=== PATIENT | male | born 1995 | race Caucasian/White ===

== ENCOUNTER 2020-06-22 22:32 | Emergency (ER) | payer SELFPAY ==
--- NOTE | 2020-06-22 22:56 | ER Document Report ---
ED Medical Screen (RME) - General Stated Complaint: CYST TAILBONE Time Seen by Provider: 06/22/20 22:55 Notes: Presents complaining of cyst of the sacral area for the past 2 to 3 weeks. Patient denies any fever. Patient denies any history of diabetes. Patient with a history of bipolar disorder and depression. I have greeted and performed a rapid initial assessment of this patient. A comprehensive ED assessment and evaluation of the patient, analysis of test re sults and completion of the medical decision making process will be conducted by additional ED providers. Physical Exam - Vital signs Vitals: Temp Pulse Resp BP Pulse Ox 98.1 F 100 20 117/77 97 06/22/20 22:42 06/22/20 22:42 06/22/20 22:42 06/22/20 22:42 06/22/20 22:42 - Skin Skin Color: Erythema - Pilonidal abscess Course - Vital Signs Vital signs: Temp Pulse Resp BP Pulse Ox 98.1 F 100 20 117/77 97 06/22/20 22:42 06/22/20 22:42 06/22/20 22:42 06/22/20 22:42 06/22/20 22:42
[2020-06-23 01:28] LABS: ABSOLUTE BASOPHILS # (AUTO) 0.1 10^3/uL (0.0-0.2); ABSOLUTE EOSINOPHILS # (AUTO) 0.2 10^3/uL (0.0-0.6); ABSOLUTE LYMPHOCYTES (AUTO) 2.2 10^3/uL (0.5-4.7); ABSOLUTE MONOCYTES (AUTO) 0.6 10^3/uL (0.1-1.4); ABSOLUTE NEUT (AUTO) 5.6 10^3/uL (1.7-8.2); EOSINOPHILS % (AUTO) 2.2 % (0-6); HEMATOCRIT 39.9 % (37.9-51.0); LYMPHOCYTES % (AUTO) 24.8 % (13-45); MEAN CORPUSCULAR HEMOGLOBIN 30.9 pg (27.0-33.4); MEAN CORPUSCULAR HGB CONC 35.2 g/dL (32.0-36.0); MEAN CORPUSCULAR VOLUME 88 fl (80-97); MONOCYTES % (AUTO) 7.5 % (3-13); PLATELET COUNT 377 10^3/uL (150-450); RED BLOOD COUNT 4.54 10^6/uL (4.35-5.55); RED CELL DISTRIBUTION WIDTH 12.8 % (11.5-14.0); SEGMENTED NEUTROPHILS % (AUTO) 64.5 % (42-78); TOTAL CELLS COUNTED % (AUTO) 100 %; WHITE BLOOD COUNT 8.7 10^3/uL (4.0-10.5)
[2020-06-23 02:03] LABS: ANION GAP 8 (5-19); BLOOD UREA NITROGEN 16 mg/dL (7-20); CALCIUM 9.6 mg/dL (8.4-10.2); CARBON DIOXIDE 34 mmol/L (22-30); CHLORIDE 98 mmol/L (98-107); GLUCOSE 94 mg/dL (75-110); POTASSIUM 3.7 mmol/L (3.6-5.0)
[2020-06-23] MEDS ORDERED: PIPERACILLIN/TAZOBACTAM 3.375 GM VIAL IV ONE (12:39)
[2020-06-23] MEDS ORDERED: LIDOCAINE 1% INJ-PF (10 MG/ML) 30 ML SDV INJ ONE (12:40)
[2020-06-23] MEDS ORDERED: NORMAL SALINE 1000 ML 1,000 ML IV ONE (12:40)
--- NOTE | 2020-06-23 13:21 | RADIOLOGY REPORT (SQ) ---
EXAM DESCRIPTION: U/S EXTREMITY NONVASCULAR LTD IMAGES COMPLETED DATE/TIME: 06/23/2020 1:05 pm REASON FOR STUDY: pilonidal cyst COMPARISON: None. TECHNIQUE: Dynamic and static grayscale images acquired of the localized site of clinical concern an d recorded on PACS. Additional selected color Doppler and spectral images recorded. SITE OF CONCERN: Coccygeal area. LIMITATIONS: None. FINDINGS: Well-circumscribed hypoechoic lesion measuring 3.4 x 3.50.6 cm. No internal flow on color Doppler. No through transmission. IMPRESSION: Solid avascular lesion, possibly a hematoma, but not further characterized. TECHNICAL DOCUMENTATION: JOB ID: [id number] 2010 [employer]- All Rights Reserved Reading location - IP/workstation name: [email or web address]
[2020-06-23] MEDS ORDERED: AMOXICILLIN TR/POT CLAVULANATE 875-125 MG TAB PO ONE (13:45)
[2020-06-23] MEDS ORDERED: KETOROLAC TROMETHAMINE INJ/PF 30 MG/1 ML SDV IV ONE (13:55)
--- NOTE | 2020-06-23 13:55 | ER Document Report ---
Entered by HELEN HWANG SCRIBE 06/23/20 1038 Acting as scribe for:JONE MARINELLI MD ED General - General Chief Complaint: Cyst Stated Complaint: CYST TAILBONE Time Seen by Provider: 06/22/20 22:55 Information source: Patient Notes: This 24 year old male patient presents to the emergency department today with complaints of a cyst to his sacral region. Patient states the cyst was drained a few months ago, noticed it again a few weeks ago, and is vague with history. Patient states he is from [place] and denies drug use or history of DM. Patient states he occasionally smokes and "dips". Per EMS, patient is homeless and was picked up from the side of the road. Denies night sweats, fever, chills, cough, N/V/D, loss taste/smell, or concern for covid. - Related Data Allergies/Adverse Reactions: No Known Allergies Allergy (Verified 06/23/20 03:44) Past Medical History - General Information source: Patient - Social History Smoking Status: Current Some Day Smoker Cigarette use (# per day): Yes Frequency of alcohol use: None Drug Abuse: None Lives with: Homeless Family History: Reviewed & Not Pertinent Endocrine Medical History: Denies: Hx Diabetes Mellitus Type 1, Hx Diabetes Me llitus Type 2 Review of Systems - Review of Systems Constitutional: See HPI. denies: Chills, Diaphoresis, Fever EENT: See HPI. denies: Other - loss taste/smell Cardiovascular: No symptoms reported Respiratory: See HPI. denies: Cough Gastrointestinal: See HPI. denies: Diarrhea, Nausea, Vomiting Genitourinary: No symptoms reported Male Genitourinary: No symptoms reported Musculoskeletal: No symptoms reported Skin: No symptoms reported Hematologic/Lymphatic: No symptoms reported Neurological/Psychological: No symptoms reported -: Yes All other systems reviewed and negative Physical Exam - Vital signs Vitals: Temp Pulse Resp BP Pulse Ox 98.1 F 100 20 117/77 97 06/22/20 22:42 06/22/20 22:42 06/22/20 22:42 06/22/20 22:42 06/22/20 22:42 - General Notes: Alert. Appears non-toxic. - HEENT Head: Normocephalic, Atraumatic Eyes: Normal Pupils: PERRL Neck: Normal, Supple - Respiratory Respiratory status: No respiratory distress Chest status: Nontender Breath sounds: Normal Chest palpation: Normal - Cardiovascular Rhythm: Regular Heart sounds: Normal auscultation, S1 appreciated, S2 appreciated Murmur: No - Abdominal Inspection: Normal Distension: No distension Bowel sounds: Normal Tenderness: Nontender - Extremities General upper extremity: Normal inspection, Normal ROM General lower extremity: Normal inspection, Normal ROM. No: Edema - Neurological Neuro grossly intact: Yes Cognition: Normal Orientation: AAOx4 [place] Coma Scale Eye Opening: Spontaneous [place] Coma Scale Verbal: Oriented [place] Coma Scale Motor: Obeys Commands Mehul Coma Scale Total: 15 Speech: Normal Motor strength normal: LUE, RUE, LLE, RLE Sensory: Normal - Psychological Associated symptoms: Normal affect, Normal mood - Skin Skin Moisture: Dry Irregularity with: Swelling Notes: 5 cm by 2 cm wide flat area with swelling and erythema to the top of the buttocks crease and is in the shape of a upside down hourglass. Area is not warm to touch. No open wound and there is no drainage. Healed scarring to this area from possible past procedures. No tenderness with palpation. Course - Re-evaluation Re-evalutation: 06/23/20 13:49 Patient resting comfortably pending discharge at this time. Reexamined patient area in his back and it palpates asa dough like soft tissue, without significant pain. The area is somewhat reddened without any temperature elevation warmth or any drainage at this time. Patient reports that he has had this area drained sometime in the future and he is very vague on how many months days ago this occurred because patient has traveled from another location to [place] and reports that he is going to get in 2 weeks in [place]. But in transport to [place] he apparently had stopped at another emergency department and had the area drained. - Vital Signs Vital signs: Temp Pulse Resp BP Pulse Ox 97.5 F 65 14 109/65 100 06/23/20 12:11 06/23/20 12:11 06/23/20 12:11 06/23/20 12:11 06/23/20 12:11 06/23/20 13:51 Vital signs stable. - Laboratory Results Result Diagrams: 06/23/20 01:15 06/23/20 01:15 Laboratory Results Interpreted: 06/23/20 01:15 Carbon Dioxide 34 H 06/23/20 13:51 There are no critical laboratory results today. Critical Laboratory Results Reviewed: No Critical Results - Radiology Results Radiology Results Interpreted: 06/23/20 13:51 Extremity Ultrasound 06/23/20 10:45 IMPRESSION: Solid avascular lesion, possibly a hematoma, but not further characterized. A solid avascular lesion most likely hematoma is located in the soft tissue area where pilonidal cyst are present. However best diagnosis of this avascular solid lesion is a hematoma. Does not appear to be an abscess or cyst. Critical Radiology Results Reviewed: No Critical Results Discharge - Discharge Clinical Impression: Hematoma Condition: Stable Disposition: HOME, SELF-CARE Prescriptions: Amoxicillin/Potassium Clav [Augmentin 875-125 Tablet] 1 tab PO BID #20 tab Ibuprofen [Ibu] 800 mg PO TID PRN #21 tablet PRN Reason: For Pain Scale 3-5 I personally performed the services described in the documentation, reviewed and edited the documentation which was dictated to the scribe in my presence, and it accurately records my words and actions.
[2020-06-23 14:46] VITALS: BP 104/62
== END 2020-06-23 14:49 | disposition home or self-care (01) ==
LOC: ER 22:32
DX: L76.31 Postprocedural hematoma of skin and subcutaneous tissue following a dermatologic procedure (principal); Y83.8 Other surgical procedures as the cause of abnormal reaction of the patient, or of later complication, without mention of misadventure at the time of the procedure; F17.210 Nicotine dependence, cigarettes, uncomplicated
CPT/HCPCS: 99285; 96360; 36415; 85025; 80048; 76882; J1885; J7030; J3490